=== PATIENT | female | born 1950 | race Caucasian/White ===

== ENCOUNTER → 2024-05-30 08:45 | Outpatient (REF) | payer OTHER, SELFPAY ==
--- NOTE | 2024-05-20 10:45 | PN.DIAED02 ---
Referral
DSME Class Series Code: [id number]
Referred For: Diabetes Self-Management Training, Medical Nutrition Therapy, Long-Term Complication Instruction, Accute Complication Instruction, Continuous Glucose Monitoring, Medication management, Care Coordination, Disease Management
PHI Release Authorization Form Signed: Yes
Demographic
Patient's primary language-: Tamaz[place]
Education: College degree
- Social
Primary Support Person: Self
Primary Care Takers: Self
Living Arrangements: Self & spouse, Family
- Learning Methods
Preferred Method: Reading, Lecture/audio, Video, Group discussion, Other (taking notes)
Glycemic Control
- Blood Glucose Monitoring Assessment
Blood glucose monitoring at home: Yes
Monitor Brands: OneTouch (verio flex)
Time: fasting
Patient uses Alternate Site Testing: No
- Ketone Monitoring Assessment
Patient monitoring ketone: No
- Hyperglycemia Assessment
Experiences Hyperglycemia: Yes
Frequency: 7 or more times per week
Hitory of DKA/HHS: No
- Blood Glucose Monitoring Results
Source: self-report
- Hemoglobin A1c
Date: 04/16/24
A1C Percentage (%): 8.5
Medical History of Diabetes
Family Diabetes History: Mother, Father, Sibling (3 siblings with type 2 and 1 sibling with type 1)
Previous Diabetes Education: Yes
How long ago?: 6-10 years ago
Previous visit with Dietitian: No
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
(atrorvastatin 20 mg tablet daily), Liver disease
Current Home Medication
- Insulin Management
Patient adjusts own insulin dosages: No (Jardiance 25 mg daily, Metfromin 1000 mg BID)
Measures
- Anthropometrics
Height: 5 ft 10 in
Actual Weight: 134 lb 12.8 oz (lost 20 lbs since August after taking Ozempic)
- Blood Pressure / Pulse
Blood pressure: 132/54
Pulse: 76
- Diabetes Management
Medical Management for Diabetes: Complete physical exam (08/12/23), Dental exam (04/28/24), Dilated eye exam (09/10/23), Flu Vaccination (02/05/24)
Self-Care
- Tobacco Usage
Do you now, or have you ever smoked?: Never smoked
- Alcohol & Drugs Usage
Drinks Alcohol: No
- Meals & Dining
Meals & Dining: Patient skips meals: Yes, Food Intolerance / Allergy: No, Cultural / [employer] Dietary Needs: No
Primary Food Payroll Lead: Self
Dining Out Frequency: 1-3x per week
- Physical Activity
Physical Limitation: Yes (arthritis)
Patient participates in physical Activity: No
- Self Foot-Care
Foot Problems: None
Performs Self Foot-Exam: No (discussed making appt with wrap yarn sorter)
- Patient-Self Assessment
Feelings About Diabetes: Denial
Importance of Health: Extremely
Diabetes Interferes With:: Family/social activities
Barriers to Diabetes Management: Nothing
Depression Survey Score: 4
- Diabetes Identification
Carries Diabetes Identification: No
Care Plan
- Education Needs
Patient Education Needs: Diabetes disease process, Chronic complications, Acute complications, Medication, Monitoring, Physical activity, Psychosocial Adjustment, Nutritional management, Goal setting & problem solving
Recommended Diabetes Training Program based on assessment: Outpatient Diabetes Education Program
- Plan of Care
Plan of Care:
Grace presented for her initial diabetes assessment for the May 2024 daytime DSME program. She has had diabetes for over 30 years and is currently taking Metformin 2000 mg daily and Jardiance 25 mg daily. She has received diabetes education
greater than 10 years ago and has a strong family history of diabetes. Her current A1c from 04/10 is 8.5 % and Grace stated she is trying to get on track with lowering her glucose levels. She has a Onetouch Verio flex glucometer at home but only
checks fasting. She is aware she needs to increase monitoring and was ordered a freestyle 3 plus sensor. Grace is unable to use the sensor with her current phone and we discussed switching to a freestyle 3 sensor so she can use a concrete mixer operator helper. She
will reach out to MELVIN Yanes to discuss that process. Grace was started on Ozempic in August, and had a significant weight loss of >20lbs and sever nausea and hives. She had taken the medication for appx, 6 weeks and it was
discontinued. Grace will reach out the office if she has any concerns prior to starting the DSME program.
--- NOTE | 2024-05-20 11:07 | PN.DIAED04 ---
Education Record
- Education Record
Class Attended: Other (Initial DSME assessment)
Instructor: Nurse Practitioner (LELAND Hernandez)
Pre-Program Knowledge: Demonstrates competency
Pre-Test Score (%): 85
Goals
- Goal 1
Being Active: Exercise 15 minutes-3 times per week, Other (weight training, walking and swimming)
Goals To Be Evaluated: Exercise 15 mins-3x/week. Other
- Goal 2
Healthy Eating: Patient will be able to plan a meal, Make better food choices
Goals To Be Evaluated: Be able to plan a meal. Make better food choices
- Goal 3
Monitoring: Monitor more often (start continuous glucose sensor)
Goals To Be Evaluated: Monitor more often
--- NOTE | 2024-05-31 13:53 | PN.DIAED14 ---
This is to notify you that your patient with diabetes, TABATHA FARNSWORTH ( 1950), has enrolled in our diabetes self-management classes that are being held at [facility].
These classes will include an introduction to diabetes, diet, medication, exercise and prevention of complications. At the end of our class series, you will receive a report of your patient's participation and progress for your records.
Please contact me at the Diabetes Center, , if there is any particular information regarding your patient that might be helpful to me.
Sincerely,
Akbar HA-,[facility] [place][NOTE 2]ES
--- NOTE | 2024-05-31 13:53 | PN.DIAED04 ---
Addendum entered and electronically signed by Arline Heath 06/01/24 11:57:
Outpatient Diabetes Education Program:
Class 1 (120 minutes)
Describe the diabetes disease process and treatment options
Diabetes management
Develop personal strategies to promote health and behavior change
Integrate psychosocial adjustment for daily living
Monitor blood glucose and other parameters. Interpret and use the results for self-management decision making
Prevent, detect, and treat acute complications
Original Note:
Education Record
- Education Record
Class Attended: Class 1
DSME Class Series Code: [id number]
Instructor: Nurse Practitioner (LELAND Hernandez)
Class Length (mins): 120
Post-Class 1 Test Score (%): 100
== END ==
LOC: DES 08:45
PROVIDERS: ATTENDING PHYSICIAN Physician Assistant
DX: E11.65 Type 2 diabetes mellitus with hyperglycemia (principal)
CPT/HCPCS: 99078

== ENCOUNTER → 2024-06-06 13:06 | Outpatient (REF) | payer OTHER, SELFPAY | LOC: DES 13:06 | PROVIDERS: ATTENDING PHYSICIAN Physician Assistant | DX: E11.65 Type 2 diabetes mellitus with hyperglycemia (principal) | CPT/HCPCS: 99078 ==

== ENCOUNTER → 2024-06-13 09:08 | Outpatient (REF) | payer OTHER, SELFPAY | LOC: DES 09:08 | PROVIDERS: ATTENDING PHYSICIAN Physician Assistant | DX: E11.65 Type 2 diabetes mellitus with hyperglycemia (principal) | CPT/HCPCS: 99078 ==

== ENCOUNTER → 2024-06-20 10:02 | Outpatient (REF) | payer OTHER, SELFPAY ==
--- NOTE | 2024-06-21 10:32 | PN.DIAED04 ---
Education Record
- Education Record
Class Attended: Class 4
DSME Class Series Code: [id number]
Instructor: Nurse Practitioner (LELAND Hernandez)
Class Curriculum:
Outpatient Diabetes Education Program:
Class 4 (120 minutes)
Develop personal strategies to promote health and behavior change
Incorporate physical activity into lifestyle
Utilize medications safety for maximum therapeutic effectiveness
Understand different medication/insulin mechanism of action
Preparing for travel
Class Length (mins): 120
Post-Class 4 Test Score (%): 93
== END ==
LOC: DES 10:02
PROVIDERS: ATTENDING PHYSICIAN Physician Assistant
DX: E11.65 Type 2 diabetes mellitus with hyperglycemia (principal)
CPT/HCPCS: 99078

== ENCOUNTER → 2024-08-08 12:35 | Outpatient (REF) | payer OTHER, SELFPAY ==
--- NOTE | 2024-08-11 10:36 | PN.DIAED04 ---
Education Record
- Education Record
Class Attended: Class 5
DSME Class Series Code: [id number]
Instructor: Nurse Practitioner (LELAND Hernandez)
Class Curriculum:
Outpatient Diabetes Education Program:
Class 5 (120 minutes)
Prevent, detect, and treat acute complications
Prevent, detect, and treat chronic complications through risk reduction
Develop personal strategies to address psychosocial issues and concerns
Development of diabetes self-management support plan
Letter to physician with DSMS plan attached sent
Class Length (mins): 120
Post-Program Knowledge: Demonstrates competency
Post-Test Score (%): 88
Post-Program Assessment
- Post-Program Assessment
Actual Weight: 134 lb
Blood pressure: 142/70
Post-Program Depression Survey Score: 10
Reviewing Previous Goals?: Yes
Pre-Program Depression Survey Score: 4
- Goals 1 Evaluation
Goals To Be Evaluated: Exercise 15 mins-3x/week. Other
- Goals 2 Evaluation
Goals To Be Evaluated: Be able to plan a meal. Make better food choices
- Goals 3 Evaluation
Goals To Be Evaluated: Monitor more often
--- NOTE | 2024-08-11 10:37 | PN.DIAED16 ---
This is to notify you that your patient with diabetes, TABATHA FARNSWORTH ( 1950), has attended the entire series of Diabetes Self-Management Education Classes.
Class 1 (120 minutes): Diabetes Overview - monitoring, stress/psychosocial adjustment, support, goal setting
Class 2 (120 minutes): Meal Planning - serving sizes, menu plans
Class 3 (120 minutes): Introduction to Carbohydrate Counting, Analyzing Food Labels
Class 4 (120 minutes): Medication, Exercise and Activity
Class 5 (120 minutes): Sick Day Management, Strategies to Reduce Complications, Problem Solving, Resources
The following behavioral goals were identified:
Exercise 15 mins-3x/week
Other
Be able to plan a meal
Make better food choices
Monitor more often
A follow-up call will be made within three to six months to evaluate attainment of these goals and to check post-program Hemoglobin A1c and overall progress. All class participants are encouraged to contact me if I can be any further assistance in
learning how to manage their diabetes.
Sincerely,
Akbar HA-, [facility]
== END ==
LOC: DES 12:35
PROVIDERS: ATTENDING PHYSICIAN Physician Assistant
DX: E11.65 Type 2 diabetes mellitus with hyperglycemia (principal)
CPT/HCPCS: 99078

== ENCOUNTER 2025-01-30 06:24 | Day surgery (SDC) | payer OTHER, SELFPAY ==
[2025-01-30 09:29] LABS: Glucose - Point of Care 162 mg/dl (70-99)
== END 2025-01-30 10:55 | disposition home or self-care (01) ==
LOC: GI 06:24
PROVIDERS: ATTENDING PHYSICIAN Internal Medicine Gastroenterology; FAMILY PHYSICIAN Physician Assistant
DX: R13.10 Dysphagia, unspecified (principal); R11.0 Nausea; K31.89 Other diseases of stomach and duodenum; K29.50 Unspecified chronic gastritis without bleeding
CPT/HCPCS: 43239; 82962; 88305; 88342